=== PATIENT | male | born 1960 | race Two or more races ===

== ENCOUNTER 2024-10-22 17:40 | Inpatient (IN) | payer OTHER, MEDICAID ==
[~2024-10-22] VITALS: Ht 177.8 cm; Wt 100.0 kg
--- NOTE | 2024-10-22 18:15 | ED.PDOC ---
General HPI Comments 64 y.o male with PMHx of HTN, DM, HLD and kidney stones, presents to the ED for a chief complaint of left sided flank pain radiating to both his back and abdomen that started 2 weeks ago. Patient describes pain as sharp, constant, and rating a 8/10 on the pain scale. Patient reports pain is similar to previous episodes in which he was dx with kidney stones and hernia. Patient denies any dysuria, hematuria, fever, chills, bloody stool, nausea, vomiting or diarrhea. Chief Complaint: Flank Pain Time Seen by MD: 18:00 Primary Care Provider: ERIN Reviewed notes: Nurses Notes, Medications, Allergies Allergies: Coded Allergies: NO KNOWN ALLERGIES (Unverified , 10/22/24) Information Source: Patient Mode of Arrival: Ambulatory Severity: Moderate Timing: Weeks (2) Duration: Since onset Onset: Spontaneous Symptoms: None History of: Kidney stone Location: (L)Flank Modifying factors: None associated signs and symptoms: Abdominal Pain, Flank Pain, Back Pain Past Medical History PAST MEDICAL HISTORY: DM, High Lipids, HTN, Kidney Stones Past Medical History (Other): hernia Surgical History: Denies all surgeries Family History Family History: Family hx of DM Social History Smoker: Non-Smoker Alcohol: Denies ETOH Use Drugs: Denies Drug Use Lives In: Home Constitutional: denies: chills, diaphoresis, fatigue, fever, malaise, sweats, weakness, others EENTM: denies: blurred vision, double vision, ear bleeding, ear discharge, ear drainage, ear pain, ear ringing, eye pain, eye redness, hearing loss, mouth pain, mouth swelling, nasal discharge, nose bleeding, nose congestion, nose pain, photophobia, tearing, throat pain, throat swelling, voice changes, others Respiratory: denies: cough, hemoptysis, orthopnea, SOB at rest, shortness of breath, SOB with excertion, stridor, wheezing, others Cardiovascular: denies: chest pain, dizzy spells, diaphoresis, Dyspnea on exertion, edema, irregular heart beat, left arm pain, lightheadedness, palpitations, PND, syncope, others Gastrointestinal: reports: abdominal pain; denies: abdomen distended, blood streaked bowels, constipated, diarrhea, dysphagia, difficulty swallowing, hematemesis, melena, nausea, poor appetite, poor fluid intake, rectal bleeding, rectal pain, vomiting, others Genitourinary: reports: flank pain; denies: burning, dysuria, frequency, hematuria, incontinence, penile discharge, penile sore, pain, testicle pain, testicle swelling, urgency, others Neurological: denies: dizziness, fainting, headache, left sided numbness, left sided weakness, numbness, paresthesia, pre-existing deficit, right sided numbness, right sided weakness, seizure, speech problems, tingling, tremors, weakness, others Musculoskeletal: reports: back pain; denies: gout, joint pain, joint swelling, muscle pain, muscle stiffness, neck pain, others Integumetry: denies: bruises, change in color, change in hair/nails, dryness, laceration, lesions, lumps, rash, wounds, others Allergic/Immunocompromised: denies: Difficulty Healing, Frequent Infections, Hives, Itching, others Hematologic/Lymphatic: denies: anemia, blood clots, easy bleeding, easy bruising, swollen glands, others Endocrine: denies: excessive hunger, excessive sweating, excessive thirst, excessive urination, flushing, intolerance to cold, intolerance to heat, unexplained weight gain, unexplained weight loss, others Psychiatric: denies: anxiety, bipolar disorder, depression, hopeless, panic disorder, schizophrenia, sleepless, suicidal, others All Other Systems: Reviewed and Negative Physical Exam General Appearance: Moderate Distress HEENT: Normal ENT Inspection, Pharynx Normal, TMs Normal Neck: Full Range of Motion, Non-Tender, Normal, Normal Inspection Respiratory: Chest Non-Tender, Lungs Clear, No Accessory Muscle Use, No Respiratory Distress, Normal Breath Sounds Cardiovascular: No Edema, No JVD, No Murmur, No Gallop, Normal Peripheral Pulses, Regular Rate/Rhythm Breast Exam: Deferred Gastrointestinal: No Organomegaly, Non Tender, No Pulsatile Mass, Normal Bowel Sounds, Soft Genitalia: Deferred Pelvic: Deferred Rectal: Deferred Extremities: No calf tenderness, Normal capillary refill, No pedal edema Musculoskeletal : Location: Left Extremity Location: Back Apperance: Tenderness: Moderate Neurologic: Alert, mold stamper II-XII nml as Tested, No Motor Deficits, Normal Affect, Normal Mood, No Sensory Deficits Cerebellar Function: Normal Reflexes: Normal Skin: Dry, Normal Color, Warm Lymphatic: No Adenopathy Was a procedure done? Was a procedure done?: No Differential Diagnosis Kidney stone (Female): N/A Kidney stone (Male): Cholelithiasis, Cholangitis, Pancreatitis, Pyelonephritis, Strain, Urinary obstruction, Urolithiasis, Urinary tract infection X-Ray, Labs, Meds, VS Vital Signs Date Time Temp Pulse Resp B/P (MAP) Pulse Ox O2 Delivery O2 Flow Rate FiO2 10/22/24 18:36 85 18 94 Room Air* 0 21 10/22/24 18:36 98.8 85 18 128/64 (85) 94 98.8 10/22/24 17:59 98.4 97 16 122/66 (84) 97 98.4 Lab Test 10/22/24 18:56 10/22/24 18:00 Range/Units White Blood Count 7.4 4.4-10.8 10^3/uL Red Blood Count 5.36 4.5-5.90 10^6/uL Hemoglobin 14.7 13.5-17.5 g/dL Hematocrit 44.0 41.0-53.0 % Mean Corpuscular Volume 82.1 80.0-100.0 fL Mean Corpuscular Hemoglobin 27.4 L 28.0-32.0 pg Mean Corpuscular Hemoglobin Concent 33.4 32.0-36.0 g/dL Red Cell Distribution Width 13.6 11.8-14.3 % Platelet Count 159 140-450 10^3/uL Mean Platelet Volume 9.8 6.9-10.8 fL Neutrophils (%) (Auto) 56.5 37.0-80.0 % Lymphocytes (%) (Auto) 30.7 10.0-50.0 % Monocytes (%) (Auto) 9.2 0.0-12.0 % Eosinophils (%) (Auto) 3.3 0.0-7.0 % Basophils (%) (Auto) 0.3 0.0-2.0 % Neutrophils # (Auto) 4.2 1.6-8.6 10 ^3/uL Lymphocytes # (Auto) 2.3 0.4-5.4 10 ^3/uL Monocytes # (Auto) 0.7 0-1.3 10 ^3/uL Eosinophils # (Auto) 0.2 0-0.8 10 ^3/uL Basophils # (Auto) 0 0-0.2 10 ^3/uL Nucleated Red Blood Cells 0.0 % Sodium Level 139 136-145 mmol/L Potassium Level 4.6 3.5-5.1 mmol/L Chloride Level 102 98-107 mmol/L Carbon Dioxide Level 28 20-31 mmol/L Anion Gap 9 5-15 Blood Urea Nitrogen 18 9-23 mg/dL Creatinine 1.26 0.700-1.30 mg/dL Glomerular Filtration Rate Calc 64 >90 mL/min BUN/Creatinine Ratio 14.3 10.0-20.0 Serum Glucose 352 H 74-106 mg/dL Calcium Level 10.4 8.7-10.4 mg/dL Urine Color Yellow Yellow Urine Clarity Clear Clear Urine pH 5.5 5.0-9.0 Urine Specific [place] 1.026 1.001-1.035 Urine Protein Trace H Negative Urine Ketones Negative Negative Urine Blood Negative Negative /uL Urine Nitrite Negative Negative Urine Bilirubin Negative Negative Urine Urobilinogen Normal Negative mg/dL Urine Leukocyte Esterase Negative Negative /uL Urine RBC 1 0 - 3 /hpf Urine Microscopic WBC < 1 0-3 /HPF Urine Squamous Epithelial Cells Few <5 /hpf Urine Bacteria None seen None Seen /hpf Urine Mucus Few None Seen Urine Glucose 4+ H Normal mg/dL Current Medications Medications (Trade) Dose Ordered Sig/Divine Route Start Time Stop Time Status Last Admin Ondansetron HCl (Zofran) 4 mg ONCE ONCE IV 10/22/24 18:30 10/22/24 18:31 DC 10/22/24 18:56 Ketorolac Tromethamine (Toradol Injection) 30 mg ONCE ONCE IV 10/22/24 18:30 10/22/24 18:31 DC 10/22/24 18:57 Time of 1ST Reevaluation: 19:00 Reevaluation 1ST: Unchanged Patient Education/Counseling: Diagnosis, Treatment, Prognosis Family Education/Counseling: No Family Present SEPSIS Sepsis Screen Date sepsis recognized/suspect: Oct 22, 2024 Time Sepsis recognized/suspect: 1738 Recent Procedure: No On Antibiotic Therapy: No Respiratory Rate >20: No Heart Rate >90: No Temp<36 C (96.8 F) or >38.3 C: No SBP <90 or MAP <65 mmHG: No New Acute Mental Status Change: No Is the patient on CPAP, BIPAP,: No Physician Orders Ct Ab Pel Wo Con-No Oral Or Iv (10/22/24 18:26) Heplock Iv (10/22/24 18:26) Corn Detasseler (10/22/24 18:26) Blood Pressure (10/22/24 18:26) Pulse Oximetry (10/22/24 18:26) Vital Signs Date Time Temp Pulse Resp B/P (MAP) Pulse Ox O2 Delivery O2 Flow Rate FiO2 10/22/24 18:36 85 18 94 Room Air* 0 21 10/22/24 18:36 98.8 85 18 128/64 (85) 94 98.8 10/22/24 17:59 98.4 97 16 122/66 (84) 97 98.4 Laboratory Tests Test 10/22/24 18:56 White Blood Count 7.4 10^3/uL (4.4-10.8) Medications Medications Dose Ordered Sig/Divine Route Start Time Stop Time Status Last Admin Dose Admin Ketorolac Tromethamine 30 mg ONCE ONCE IV 10/22/24 18:30 10/22/24 18:31 DC 10/22/24 18:57 Ondansetron HCl 4 mg ONCE ONCE IV 10/22/24 18:30 10/22/24 18:31 DC 10/22/24 18:56 Departure 1 Departure Time of Disposition: 20:01 Impression: Primary Impression: Intractable back pain Additional Impressions: Hydronephrosis, left Ureterolithiasis Disposition: ADMITTED INPATIENT Admit to: Med Surg Condition: Fair Critical Care Note Critical Care Time?: No Stability Stability form required: Yes Unstable for transfer: ED Physician Assesment (Clinical assesment) I personally scribed for AMIE MUHAMMAD MD ([email or web address]) on 10/22/24 at 18:15. Electronically submitted by Sarah Iyer ([facility]). AMIE MUHAMMAD MD Oct 22, 2024 18:15
[2024-10-22 18:36] VITALS: PULSE 85; RESP 18; O2SAT 94
[2024-10-22] MEDS: ONDANSETRON HCL 4 MG/2 ML VIAL IV ONE (18:56)
[2024-10-22] MEDS: KETOROLAC TROMETH 30 MG/ML 1ML VIAL IV ONE (18:57)
[2024-10-22 19:19] LABS: Hematocrit 44.0 % (41.0-53.0); Hemoglobin 14.7 g/dL (13.5-17.5); Mean Corpuscular Hemoglobin 27.4 pg (28.0-32.0); Mean Corpuscular Volume 82.1 fL (80.0-100.0); Nucleated Red Blood Cells % 0.0 %
[2024-10-22 19:29] LABS: Anion Gap 9 (5-15); Carbon Dioxide 28 mmol/L (20-31); Chloride 102 mmol/L (98-107); Potassium 4.6 mmol/L (3.5-5.1); Sodium 139 mmol/L (136-145)
[2024-10-22 19:30] LABS: Calcium 10.4 mg/dL (8.7-10.4)
[2024-10-22 19:35] LABS: BUN/Creatinine Ratio 14.3 (10.0-20.0); Blood Urea Nitrogen 18 mg/dL (9-23)
[2024-10-22 19:38] LABS: Glucose 352 mg/dL (74-106)
[2024-10-22 19:49] LABS: Urine Protein, UAD TRACE (Negative)
--- NOTE | 2024-10-22 19:53 | DVH ---
Exam: CT CT AB PEL WO CON-NO ORAL OR IV History: FLANK PAIN Comparison Study: None TECHNIQUE: Multidetector CT of the abdomen was performed from lung bases to pubic symphysis. Imaging was performed without IV contrast. Axial, coronal and sagittal multiplanar reformats were obtained fr om the axial data set by the technologist. Radiation Dose Information: Dose-length product is 975 mGy*cm FINDINGS: Limited sections of the lung bases demonstrate no focal pulmonary mass. Left lingular subsegmental at electasis. The liver, spleen, and both adrenal glands demonstrate no acute findings. Hepatomegaly to 17 cm. Minimal inflammation about the pancreatic head where acute pancreatitis is not entirely excluded. The gallbladder is contracted The stomach is unremarkable. The small bowel loops are not dilated. The appendix is normal. No colonic obstruction. Colonic diverticulosis without acute diverticulitis. Nonobstructive stone within the left kidney. No hydronephrosis. The right collecting system is unrema rkable. Urinary bladder wall thickening which may reflect cystitis vs partial nondistention; consider correla tion with urinarlysis. No significant lymphadenopathy. No free air or free fluid. The aorta and IVC demonstrate no acute findings. Minimal atherosclerosis of the abdominal vasculature . Visualized osseous structures demonstrate no acute abnormality. IMPRESSION: 1. Nonobstructive stone within the left kidney without hydronephrosis or evidence of obstructive urop athy. Recent passage of stone is not entirely excluded. 2. Urinary bladder wall thickening which may reflect cystitis vs partial nondistention; consider jac elation with urinarlysis. 3. Minimal inflammation about the pancreatic head where acute pancreatitis is not entirely excluded.
[2024-10-22] MEDS ORDERED: MORPHINE SULFATE INJ 2 MG/ml SYRG IV PRN (21:30)
[2024-10-22] MEDS ORDERED: DEXTROSE (50%) 50ML SYRG IV PRN (21:30)
[2024-10-22] MEDS ORDERED: NITROGLYCERIN 0.4 MG SL TAB SL PRN (21:30)
--- NOTE | 2024-10-22 21:42 | DVHHP2 ---
History of Present Illness History of Present Illness This is a 64-year-old male with past medical history of DM2, HTN, HLD, kidney stone came with the complain of left flank pain for 2 weeks which is progressiv chiquis worsening day by day which is more severe for last 4 days, flank pain is dull and occasionally pinching, continuous, 8/10 intensity, radiates from groin to tip of the penis is during micturition, no aggravating factor, tried ibuprofen which helps a little. Patient also had similar symptoms before and passage of stone in urine 1 year back. Patient does not having particular di etary habit or any known factor that causes the stone. Denies any fever, hematuria, chest pain, headache, SOB, nausea, vomiting, any focal weakness. PAST MEDICAL HISTORY: DM2, HTN, HLD, kidney stone Surgical History: Denies all surgeries Family History: Family hx of DM Smoker: Non-Smoker Alcohol: Denies ETOH Use Drugs: Denies Drug Use Lives In: Home Allergy: No known allergies PCP: Dr. Wilkinson Review of Systems Constitutional: Yes: Malaise; No: Fever, Chills, Sweats, Weakness, Other Eyes: No: Pain, Vision change, Conjunctivae inflammation, Eyelid inflammation, Other, Redness ENT: No: Ear pain, Ear discharge, Nose pain, Nose discharge, Nose congestion, Mouth pain, Mouth swelling, Throat pain, Throat swelling, Other Respiratory: No: Cough, Dry, Shortness of breath, SOB with excertion, Wheezing, Hemoptysis, Pleuritic Pain, Sputum, Wheezing, Other Cardiovascular: No: Chest Pain, Palpitations, Orthopnea, Paroxysmal Noc. Dyspnea, Edema, Lt Headedness, Other Gastrointestinal: Abdominal Pain, Other (Left flank pain); No: Nausea, Vomiting, Diarrhea, Constipation, Melena, Hematochezia Genitourinary: No Dysuria, No Frequency, No Incontinence, No Hematuria, No Retention; Other (Pain during micturition on tip of penis) Musculoskeletal: No: other, neck pain, shoulder pain, arm pain, back pain, hand pain, leg pain, foot pain Skin: No: Rash, Lesions, Jaundice, Bruising, Other Neurological: No: Weakness, Numbness, Incoordination, Change in speech, Confusion, Seizures, Other Allergies: Coded Allergies: NO KNOWN ALLERGIES (Unverified , 10/22/24) Medications Current Medications Medications Dose Ordered Sig/Divine Route Start Time Stop Time Status Last Admin Dose Admin Nitroglycerin 0.4 mg Q5MINP PRN SL 10/22/24 21:30 UNV Morphine Sulfate 2 mg Q30M PRN IV 10/22/24 21:30 UNV Aspirin 81 mg DAILY PO 10/23/24 10:00 UNV Atorvastatin Calcium 10 mg HS PO 10/22/24 22:00 UNV Diagnostic Test (Pha) 1 strip ACHS 10/22/24 22:00 UNV Insulin Human Regular HS SC 10/22/24 22:00 UNV Insulin Human Regular AC SC 10/23/24 07:00 UNV Dextrose 50 ml UD PRN IV 10/22/24 21:30 UNV Insulin Glargine 15 units QAM SC 10/23/24 07:00 UNV Benazepril HCl 20 mg DAILY PO 10/23/24 10:00 UNV Pantoprazole Sodium 40 mg DAILY@0600 PO 10/23/24 06:00 UNV Exam Vital Signs Vital Signs Date Time Temp Pulse Resp B/P (MAP) Pulse Ox O2 Delivery O2 Flow Rate FiO2 10/22/24 18:36 85 18 94 Room Air* 0 21 10/22/24 18:36 98.8 128/64 (85) 98.8 General Appearance: Alert, Oriented X3, Cooperative, mild distress HEENT: Atraumatic, PERRLA, EOMI Respiratory: Clear to auscultation, Normal air movement Cardiovascular: Regular rate, Normal S1, Normal S2, No murmurs Abdominal: Normal bowel sounds, Soft, No hepatospenomegaly, Other (Left costovertebral angle tenderness on deep palpation) Extremities: No clubbing, No cyanosis, No edema, Normal pulses Skin: No breakdown, No significant lesion Neuro: Normal gait, Normal speech, Strength at 5/5 X4 ext Labs/Xrays Labs Test 10/22/24 18:56 10/22/24 18:00 Range/Units White Blood Count 7.4 4.4-10.8 10^3/uL Red Blood Count 5.36 4.5-5.90 10^6/uL Hemoglobin 14.7 13.5-17.5 g/dL Hematocrit 44.0 41.0-53.0 % Mean Corpuscular Volume 82.1 80.0-100.0 fL Mean Corpuscular Hemoglobin 27.4 L 28.0-32.0 pg Mean Corpuscular Hemoglobin Concent 33.4 32.0-36.0 g/dL Red Cell Distribution Width 13.6 11.8-14.3 % Platelet Count 159 140-450 10^3/uL Mean Platelet Volume 9.8 6.9-10.8 fL Neutrophils (%) (Auto) 56.5 37.0-80.0 % Lymphocytes (%) (Auto) 30.7 10.0-50.0 % Monocytes (%) (Auto) 9.2 0.0-12.0 % Eosinophils (%) (Auto) 3.3 0.0-7.0 % Basophils (%) (Auto) 0.3 0.0-2.0 % Neutrophils # (Auto) 4.2 1.6-8.6 10 ^3/uL Lymphocytes # (Auto) 2.3 0.4-5.4 10 ^3/uL Monocytes # (Auto) 0.7 0-1.3 10 ^3/uL Eosinophils # (Auto) 0.2 0-0.8 10 ^3/uL Basophils # (Auto) 0 0-0.2 10 ^3/uL Nucleated Red Blood Cells 0.0 % Sodium Level 139 136-145 mmol/L Potassium Level 4.6 3.5-5.1 mmol/L Chloride Level 102 98-107 mmol/L Carbon Dioxide Level 28 20-31 mmol/L Anion Gap 9 5-15 Blood Urea Nitrogen 18 9-23 mg/dL Creatinine 1.26 0.700-1.30 mg/dL Glomerular Filtration Rate Calc 64 >90 mL/min BUN/Creatinine Ratio 14.3 10.0-20.0 Serum Glucose 352 H 74-106 mg/dL Calcium Level 10.4 8.7-10.4 mg/dL Urine Color Yellow Yellow Urine Clarity Clear Clear Urine pH 5.5 5.0-9.0 Urine Specific [place] 1.026 1.001-1.035 Urine Protein Trace H Negative Urine Ketones Negative Negative Urine Blood Negative Negative /uL Urine Nitrite Negative Negative Urine Bilirubin Negative Negative Urine Urobilinogen Normal Negative mg/dL Urine Leukocyte Esterase Negative Negative /uL Urine RBC 1 0 - 3 /hpf Urine Microscopic WBC < 1 0-3 /HPF Urine Squamous Epithelial Cells Few <5 /hpf Urine Bacteria None seen None Seen /hpf Urine Mucus Few None Seen Urine Glucose 4+ H Normal mg/dL SEPSIS Sepsis Screen Date sepsis recognized/suspect: Oct 22, 2024 Time Sepsis recognized/suspect: 1738 Recent Procedure: No On Antibiotic Therapy: No Respiratory Rate >20: No Heart Rate >90: No Temp<36 C (96.8 F) or >38.3 C: No SBP <90 or MAP <65 mmHG: No New Acute Mental Status Change: No Is the patient on CPAP, BIPAP,: No Physician Orders Ct Ab Pel Wo Con-No Oral Or Iv (10/22/24 18:26) Heplock Iv (10/22/24 18:26) Manager Medical (10/22/24 18:26) Blood Pressure (10/22/24 18:26) Pulse Oximetry (10/22/24 18:26) Admit (10/22/24 21:23) Nitroglycerin Sublingual (Ntrostat Subli (10/22/24 21:30) Morphine Sulfate Injection (10/22/24 21:30) Consistent Carb(Ccho)Diabetes (10/23/24 Breakfast) Aspirin Tablet (10/23/24 10:00) Atorvastatin (Lipitor) (10/22/24 22:00) Glucose Blood (Accu-Chek Comfort Curve T (10/22/24 22:00) Insulin R (Human) (Insulin R) (10/22/24 22:00) Insulin R (Human) (Insulin R) (10/23/24 07:00) Dextrose 50% Syringe (10/22/24 21:30) Insulin Lantus (Glargine) (Lantus) (10/23/24 07:00) Benazepril Hcl Tablet (Lotensin Tablet) (10/23/24 10:00) Pantoprazole Tablet (Protonix Tablet) (10/23/24 06:00) Sequential Compression Device (10/22/24 21:31) Vital Signs Date Time Temp Pulse Resp B/P (MAP) Pulse Ox O2 Delivery O2 Flow Rate FiO2 10/22/24 18:36 85 18 94 Room Air* 0 21 10/22/24 18:36 98.8 85 18 128/64 (85) 94 98.8 10/22/24 17:59 98.4 97 16 122/66 (84) 97 98.4 Laboratory Tests Test 10/22/24 18:56 White Blood Count 7.4 10^3/uL (4.4-10.8) Medications Medications Dose Ordered Sig/Divine Route Start Time Stop Time Status Last Admin Dose Admin Ketorolac Tromethamine 30 mg ONCE ONCE IV 10/22/24 18:30 10/22/24 18:31 DC 10/22/24 18:57 30 MG Ondansetron HCl 4 mg ONCE ONCE IV 10/22/24 18:30 10/22/24 18:31 DC 10/22/24 18:56 4 MG Assessment/Plan Assessment/Plan # Intractable left flank pain due to left renal calculus -Patient came with intractable left flank pain. -H/O Passage stone in urine 1 year back -On examination left costovertebral angle tenderness -UA-no hematuria or WBC -CT abdominal and pelvis without contrast: Nonobstructive stone within the left kidney without hydronephrosis or evidence of obstructive uropathy. Urinary bladder wall thickening which may reflect cystitis vs partial nondistention; consider correlation with urinarlysis. Minimal inflammation about the pancreatic head where acute pancreatitis is not entirely excluded. -NSS 100 cc/hours -Morphine 1 mg q.6 p.r.n. for pain -Tamsulosin 0.4 mg p.o. daily -Ceftriaxone 1 g IV daily -Urology consult # Abdominal pain likely pancreatitis -CT abd-Minimal inflammation about the pancreatic head where acute pancreatitis is not entirely excluded. -Lipase 216 -NSS 1 L bolus stat. -continue NSS 125 cc/hour # Hepatomegaly -CT abdomen-Hepatomegaly to 17 cm. -outpatient follow up with cross country coach # Diverticulosis -CT abdomen-Colonic diverticulosis without acute diverticulitis. -Encourage high fiber food intake, outpatient follow-up. # Type 2 diabetes mellitus with hyperglycemia, HBA1C -9.1 -Hold home medication-metformin 1000 mg, glipizide 10 mg -Lantus 25 unit SC daily -Insulin sliding scale # YESICA due to vasomotor nephropathy -Serum creatinine 1.26, unknown baseline eGFR 64 -NSS IV 100 cc/hours # Essential hypertension -Continue home medication, benazepril 20 mg p.o. daily -Monitor blood pressures # Hyperlipidemia -Atorvastatin 10 mg p.o. daily-home medication -Lipid profile follow # Vitamin-D deficiency -Vitamin-D level 25.3 -Ordered by oral vitamin D3 # Obesity, BMI 31.6 -Lifestyle modification Son(KEENA Zapata) work as Palestinian interpreted in bedside. Diet: Diabetic diet GI prophylaxis: Pantoprazole 40 mg p.o. daily DVT prophylaxis: Patient ambulating Goals of care discussions, more than 27 minute is spent with patient. Full code status. Case discussed with Dr. Wilson Plan discussed with: Patient, Other (Nurse, son ) My Orders Orders - TOMER OLIVEROS Procedure Category Date Status Time Admit ADMIT 10/22/24 Transmitted 21:23 Nitroglycerin PHA 10/22/24 Logged Sublingual (Ntrostat 21:30 Morphine Sulfate PHA 10/22/24 Logged Injection 21:30 Consistent DIET 10/23/24 Transmitted Carb(Ccho)Diabetes Breakfast Aspirin Tablet PHA 10/23/24 Logged 10:00 Atorvastatin (Lipitor) PHA 10/22/24 Logged 22:00 Glucose Blood PHA 10/22/24 Logged (Accu-Chek Comfort 22:00 Insulin R (Human) PHA 10/22/24 Logged (Insulin R) 22:00 Insulin R (Human) PHA 10/23/24 Logged (Insulin R) 07:00 Dextrose 50% Syringe PHA 10/22/24 Logged 21:30 Insulin Lantus PHA 10/23/24 Logged (Glargine) (Lantus) 07:00 Benazepril Hcl Tablet PHA 10/23/24 Logged (Lotensin Tablet) 10:00 Pantoprazole Tablet PHA 10/23/24 Logged (Protonix Tablet) 06:00 Sequential EDY 10/22/24 In Process Compression Device 21:31 Date of Service: Oct 22, 2024 Billing Provider: BESSY WILSON MD Common Visit Codes: [id number] INP/OBS CARE (HIGH) Secondary Visit Codes: [id number] CARE PLAN 30 MINUTES TOMER OLIVEROS Oct 22, 2024 21:42
[2024-10-22] MEDS: ACCU-CHEK COMFORT CURVE STRIP VI SCH (22:00)
[2024-10-22] MEDS: ATORVASTATIN 20 MG TAB PO SCH (22:00)
[2024-10-22] MEDS: TAMSULOSIN HYDROCHLORIDE 0.4 MG CAP PO ONE (22:30)
[2024-10-22] MEDS: SODIUM CHLORIDE 0.9% 1,000 ML IV SCH (22:30)
[2024-10-22] MEDS: InsuLIN REG 1unit/0.01ml Soln (100units/ml) SC SCH (23:20)
--- NOTE | 2024-10-22 23:35 | DVH ---
CHEST RADIOGRAPH Indication: r/o cardiopulmonary dx Technique: Single frontal view of the chest was obtained Comparison: None FINDINGS: Lines and Tubes: None Lungs: No focal consolidation. Left base subsegmental atelectasis. Pleura: No effusion. No pneumothorax. Cardiomediastinal contours: Unremarkable Bones: No acute osseous abnormality. IMPRESSION: 1. No acute cardiopulmonary disease.
[2024-10-23] VITALS (7 sets, daily range): BP systolic 116–149; BP diastolic 67–74; PULSE 67–97; RESP 16–18; TEMP 97.3–98.2; O2SAT 95–99
[2024-10-23 05:01] LABS: Alanine Aminotransferase 32 U/L (7-40); Albumin 3.9 g/dL (3.2-4.8); Alkaline Phosphatase 75 U/L (46-116); Anion Gap 10 (5-15); BUN/Creatinine Ratio 19.6 (10.0-20.0); Blood Urea Nitrogen 22 mg/dL (9-23); Calcium 9.7 mg/dL (8.7-10.4); Carbon Dioxide 24 mmol/L (20-31); Chloride 106 mmol/L (98-107); Potassium 4.7 mmol/L (3.5-5.1); Sodium 140 mmol/L (136-145); Total Protein 6.6 g/dL (5.7-8.2)
[2024-10-23 05:02] LABS: Bilirubin, Total 0.4 mg/dL (0.2-1.0); Cholesterol 173 mg/dL (< 200); HDL Cholesterol 45 mg/dL (40-59)
[2024-10-23 05:06] LABS: Glucose 176 mg/dL (74-106); Triglycerides 224 mg/dL (< 150)
[2024-10-23 05:36] LABS: Lipase 216 U/L (12-53)
[2024-10-23] MEDS: PANTOPRAZOLE 40 MG TAB PO SCH (06:31)
[2024-10-23] MEDS: SODIUM CHLORIDE 0.9% 1,000 ML IV ONE ×2 (06:32→09:15)
[2024-10-23] MEDS ORDERED: INSULIN LANTUS (GLARGINE) 1 /0.01ml (100units/ml) SC SCH (07:00)
[2024-10-23] MEDS: SODIUM CHLORIDE 0.9% 1,000 ML IV SCH ×2 (07:46→16:35)
[2024-10-23] MEDS: InsuLIN REG 1unit/0.01ml Soln (100units/ml) SC SCH (07:57)
[2024-10-23] MEDS: INSULIN LANTUS (GLARGINE) 1 /0.01ml (100units/ml) SC SCH (08:05)
[2024-10-23] MEDS ORDERED: hydrALAZINE HCL 20 MG/ML VL IV PRN (08:45)
--- NOTE | 2024-10-23 08:55 | DVHINCON2 ---
Date of service: Oct 23, 2024 Referring Physician ER/Hospitalist Reason for Consultation Left flank pain 8/10 4-5 mm left renal stone History of Present Illness 64 y.o male with PMHx of HTN, DM, HLD and kidney stones, presents to the ED for a chief complaint of left sided flank pain radiating to both his back and abdomen that started 2 weeks ago. Patient describes pain as sharp, constant, and rating a 8/10 on the pain scale. Patient reports pain is similar to previous episodes in which he was dx with kidney stones and hernia. Patient denies any dy suria, hematuria, fever, chills, bloody stool, nausea, vomiting or diarrhea. Chief Complaint: Flank Pain Primary Care Provider: ERIN Reviewed notes: Nurses Notes, Medications, Allergies Allergies: Coded Allergies: NO KNOWN ALLERGIES (Unverified , 10/22/24) Information Source: Patient Mode of Arrival: Ambulatory Severity: Moderate Timing: Weeks (2) Duration: Since onset Onset: Spontaneous Symptoms: None History of: Kidney stone Location: (L)Flank Modifying factors: None associated signs and symptoms: Abdominal Pain, Flank Pain, Back Pain Past Medical History DM, High Lipids, HTN, Kidney Stones Past Medical History (Other): hernia Family History: Patient reports no known family medical history. Allergies: Coded Allergies: NO KNOWN ALLERGIES (Unverified , 10/22/24) Current Medications Current Medications Medications (Trade) Dose Ordered Sig/Divine Route PRN Reason Start Time Stop Time Status Last Admin Nitroglycerin (Ntrostat Sublingual) 0.4 mg Q5MINP PRN SL FOR CHEST PAIN 10/22/24 21:30 Morphine Sulfate 2 mg Q30M PRN IV FOR CHEST PAIN 10/22/24 21:30 Aspirin 81 mg DAILY PO 10/23/24 10:00 10/23/24 08:32 DC Atorvastatin Calcium (Lipitor) 10 mg HS PO 10/22/24 22:00 10/22/24 22:00 Diagnostic Test (Pha) (Accu-Chek Comfort Curve T) 1 strip ACHS 10/22/24 22:00 10/23/24 07:46 Insulin Human Regular (InsuLIN R) HS SC 10/22/24 22:00 10/22/24 23:20 Insulin Human Regular (InsuLIN R) AC SC 10/23/24 07:00 10/23/24 07:57 Dextrose 50 ml UD PRN IV Blood Sugar LESS THAN 60 10/22/24 21:30 Insulin Glargine (Lantus) 15 units QAM SC 10/23/24 07:00 10/22/24 22:28 DC Benazepril HCl (Lotensin Tablet) 20 mg DAILY PO 10/23/24 10:00 Pantoprazole Sodium (Protonix Tablet) 40 mg DAILY@0600 PO 10/23/24 06:00 10/23/24 06:31 Sodium Chloride 1,000 ml @ 100 mls/hr Q10H IV 10/22/24 22:30 10/23/24 06:06 DC Tamsulosin HCl (Flomax) 0.4 mg QPM PO 10/23/24 18:00 Insulin Glargine (Lantus) 25 units QAM SC 10/23/24 07:00 10/23/24 08:05 Morphine Sulfate 1 mg Q6HP PRN IV MODERATE PAIN (4-6 PAIN SCALE) 10/22/24 22:30 Ceftriaxone Sodium 50 ml @ 100 mls/hr DAILY@09 IV 10/23/24 09:00 Cholecalciferol (Vitamin D3 Tablet) 1,000 unit DAILY PO 10/23/24 10:00 Sodium Chloride 1,000 ml @ 125 mls/hr Q8H IV 10/23/24 06:01 10/23/24 07:46 Hydralazine HCl (Apresoline Injection) 10 mg Q6HP PRN IV SBP>150 10/23/24 08:45 UNV Review of Systems Constitutional: denies: chills, diaphoresis, fatigue, fever, malaise, sweats, weakness, others EENTM: denies: blurred vision, double vision, ear bleeding, ear discharge, ear drainage, ear pain, ear ringing, eye pain, eye redness, hearing loss, mouth pain, mouth swelling, nasal discharge, nose bleeding, nose congestion, nose pain, photophobia, tearing, throat pain, throat swelling, voice changes, others Respiratory: denies: cough, hemoptysis, orthopnea, SOB at rest, shortness of breath, SOB with excertion, stridor, wheezing, others Cardiovascular: denies: chest pain, dizzy spells, diaphoresis, Dyspnea on exertion, edema, irregular heart beat, left arm pain, lightheadedness, palpitations, PND, syncope, others Gastrointestinal: reports: abdominal pain; denies: abdomen distended, blood streaked bowels, constipated, diarrhea, dysphagia, difficulty swallowing, hematemesis, melena, nausea, poor appetite, poor fluid intake, rectal bleeding, rectal pain, vomiting, others Genitourinary: reports: flank pain; denies: burning, dysuria, frequency, hematuria, incontinence, penile discharge, penile sore, pain, testicle pain, testicle swelling, urgency, others Neurological: denies: dizziness, fainting, headache, left sided numbness, left sided weakness, numbness, paresthesia, pre-existing deficit, right sided numbness, right sided weakness, seizure, speech problems, tingling, tremors, weakness, others Musculoskeletal: reports: back pain; denies: gout, joint pain, joint swelling, muscle pain, muscle stiffness, neck pain, others Integumetry: denies: bruises, change in color, change in hair/nails, dryness, laceration, lesions, lumps, rash, wounds, others Allergic/Immunocompromised: denies: Difficulty Healing, Frequent Infections, Hives, Itching, others Hematologic/Lymphatic: denies: anemia, blood clots, easy bleeding, easy bru ising, swollen glands, others Endocrine: denies: excessive hunger, excessive sweating, excessive thirst, e xcessive urination, flushing, intolerance to cold, intolerance to heat, unexplained weight gain, unexplained weight loss, others Psychiatric: denies: anxiety, bipolar disorder, depression, hopeless, panic disorder, schizophrenia, sleepless, suicidal, others All Other Systems: Reviewed and Negative Vital Signs Vital Signs Date Time Temp Pulse Resp B/P (MAP) Pulse Ox O2 Delivery O2 Flow Rate FiO2 10/23/24 01:40 98.2 67 18 133/67 (89) 97 98.2 10/23/24 00:40 Room Air* 0 21 Physical Exam General Appearance: Moderate Distress HEENT: Normal ENT Inspection, Pharynx Normal, TMs Normal Neck: Full Range of Motion, Non-Tender, Normal, Normal Inspection Respiratory: Chest Non-Tender, Lungs Clear, No Accessory Muscle Use, No Respiratory Distress, Normal Breath Sounds Cardiovascular: No Edema, No JVD, No Murmur, No Gallop, Normal Peripheral Pulses, Regular Rate/Rhythm Breast Exam: Deferred Gastrointestinal: No Organomegaly, Non Tender, No Pulsatile Mass, Normal Bowel Sounds, Soft Genitalia: WNL Extremities: No calf tenderness, Normal capillary refill, No pedal edema Musculoskeletal : Location: Left Extremity Location: Back Apperance: Tenderness: Moderate Neurologic: Alert, community outreach worker II-XII nml as Tested, No Motor Deficits, Normal Affect, Normal Mood, No Sensory Deficits Cerebellar Function: Normal Reflexes: Normal Skin: Dry, Normal Color, Warm Lymphatic: No Adenopathy Labs/Diagnostic Data Labs Test 10/23/24 07:51 10/23/24 04:11 10/22/24 18:56 10/22/24 18:00 Range/Units POC Glucose 168 H 70-106 mg/dl Sodium Level 140 136-145 mmol/L Potassium Level 4.7 3.5-5.1 mmol/L Chloride Level 106 98-107 mmol/L Carbon Dioxide Level 24 20-31 mmol/L Anion Gap 10 5-15 Blood Urea Nitrogen 22 9-23 mg/dL Creatinine 1.12 0.700-1.30 mg/dL Glomerular Filtration Rate Calc 74 >90 mL/min BUN/Creatinine Ratio 19.6 10.0-20.0 Serum Glucose 176 #H 74-106 mg/dL Hemoglobin A1c 9.1 H <5.7 % A1C Calcium Level 9.7 8.7-10.4 mg/dL Total Bilirubin 0.4 0.2-1.0 mg/dL Aspartate Amino Transferase (AST) 29 13-40 U/L Alanine Aminotransferase (ALT) 32 7-40 U/L Alkaline Phosphatase 75 46-116 U/L Total Protein 6.6 5.7-8.2 g/dL Albumin 3.9 3.2-4.8 g/dL Triglycerides Level 224 H < 150 mg/dL Cholesterol Level 173 < 200 mg/dL LDL Cholesterol 110 H < 100 mg/dL HDL Cholesterol 45 40-59 mg/dL Lipase 216 H 12-53 U/L Vitamin D 25-Hydroxy 25.3 L 30.0-100 ng/mL Thyroid Stimulating Hormone (TSH) 3.26 0.55-4.78 uIU/mL White Blood Count 7.4 4.4-10.8 10^3/uL Red Blood Count 5.36 4.5-5.90 10^6/uL Hemoglobin 14.7 13.5-17.5 g/dL Hematocrit 44.0 41.0-53.0 % Mean Corpuscular Volume 82.1 80.0-100.0 fL Mean Corpuscular Hemoglobin 27.4 L 28.0-32.0 pg Mean Corpuscular Hemoglobin Concent 33.4 32.0-36.0 g/dL Red Cell Distribution Width 13.6 11.8-14.3 % Platelet Count 159 140-450 10^3/uL Mean Platelet Volume 9.8 6.9-10.8 fL Neutrophils (%) (Auto) 56.5 37.0-80.0 % Lymphocytes (%) (Auto) 30.7 10.0-50.0 % Monocytes (%) (Auto) 9.2 0.0-12.0 % Eosinophils (%) (Auto) 3.3 0.0-7.0 % Basophils (%) (Auto) 0.3 0.0-2.0 % Neutrophils # (Auto) 4.2 1.6-8.6 10 ^3/uL Lymphocytes # (Auto) 2.3 0.4-5.4 10 ^3/uL Monocytes # (Auto) 0.7 0-1.3 10 ^3/uL Eosinophils # (Auto) 0.2 0-0.8 10 ^3/uL Basophils # (Auto) 0 0-0.2 10 ^3/uL Nucleated Red Blood Cells 0.0 % Urine Color Yellow Yellow Urine Clarity Clear Clear Urine pH 5.5 5.0-9.0 Urine Specific Trosper 1.026 1.001-1.035 Urine Protein Trace H Negative Urine Ketones Negative Negative Urine Blood Negative Negative /uL Urine Nitrite Negative Negative Urine Bilirubin Negative Negative Urine Urobilinogen Normal Negative mg/dL Urine Leukocyte Esterase Negative Negative /uL Urine RBC 1 0 - 3 /hpf Urine Microscopic WBC < 1 0-3 /HPF Urine Squamous Epithelial Cells Few <5 /hpf Urine Bacteria None seen None Seen /hpf Urine Mucus Few None Seen Urine Glucose 4+ H Normal mg/dL PATIENT: CUBA CHILDRESS VACCT: [id number] UNIT: [id number] : 1960 LOC: ER ROOM / BED: / AGE / SEX: 64 / M ADM STATUS: REG ER SERVICE [id number] ORDERING PHYSICIAN: AMIE MUHAMMAD MD PROCEDURE(s): ABPL - CT AB PEL WO CON-NO ORAL OR IV REASON: FLANK PAIN ORDER NUMBER(s): [id number], ACCESSION NUMBER(s): [id number] Exam: CT CT AB PEL WO CON-NO ORAL OR IV History: FLANK PAIN Comparison Study: None TECHNIQUE: Multidetector CT of the abdomen was performed from lung bases to pubic symphysis. Imaging was performed without IV contrast. Axial, coronal and sagittal multiplanar reformats were obtained from the axial data set by the technologist. Radiation Dose Information: Dose-length product is 975 mGy*cm FINDINGS: Limited sections of the lung bases demonstrate no focal pulmonary mass. Left lingular subsegmental atelectasis. The liver, spleen, and both adrenal glands demonstrate no acute findings. Hepatomegaly to 17 cm. Minimal inflammation about the pancreatic head where acute pancreatitis is not entirely excluded. The gallbladder is contracted The stomach is unremarkable. The small bowel loops are not dilated. The appendix is normal. No colonic obstruction. Colonic diverticulosis without acute diverticulitis. Nonobstructive stone within the left kidney. No hydronephrosis. The right collecting system is unremarkable. Urinary bladder wall thickening which may reflect cystitis vs partial nondistention; consider correlation with urinarlysis. No significant lymphadenopathy. No free air or free fluid. The aorta and IVC demonstrate no acute findings. Minimal atherosclerosis of the abdominal vasculature. Visualized osseous structures demonstrate no acute abnormality. IMPRESSION: 1. Nonobstructive stone within the left kidney without hydronephrosis or e vidence of obstructive uropathy. Recent passage of stone is not entirely excluded. 2. Urinary bladder wall thickening which may reflect cystitis vs partial nondistention; consider correlation with urinarlysis. 3. Minimal inflammation about the pancreatic head where acute pancreatitis is not entirely excluded. ATED BY: HÉCTOR MEDINA MD DICTATED DATE/TIME: 10/22/241950 SIGNED BY: HÉCTOR MEDINA MD SIGNED DATE/TIME: 10/22/241950 CC: Assessment Left nephrolithiasis 5 mm Left renal colic Plan/Recommendation Left extracorporeal shockwave lithotripsy Plan discussed with: Patient, Other ABEBE BLANCHARD MD Oct 23, 2024 08:55
[2024-10-23] MEDS: cefTRIAXone 1GM/50ML D5W 50 ML IV SCH (08:59)
[2024-10-23] MEDS: BENAZEPRIL HCL 10 MG TAB PO SCH (09:23)
[2024-10-23] MEDS: CHOLECALCIFEROL (VITD3) 1,000UNIT=25mCg TAB PO SCH (09:24)
[2024-10-23] MEDS ORDERED: ROCURONIUM 10MG/ML 10ML VIAL IV ONE (11:41)
[2024-10-23] MEDS ORDERED: LIDOCAINE 1% INJ PF 5ML AMP ONE (11:41)
[2024-10-23] MEDS ORDERED: fentaNYL CITRATE 100 MCG/2 ML VL ONE ×2 (11:41→12:28)
[2024-10-23] MEDS ORDERED: SODIUM CHLORIDE LOCK 10 ML ONE (11:41)
[2024-10-23] MEDS ORDERED: KETAMINE 50mg/ML 1ml syringe ONE ×2 (11:41→12:28)
[2024-10-23] MEDS ORDERED: ONDANSETRON HCL 4 MG/2 ML VIAL ONE ×2 (11:41→12:29)
[2024-10-23] MEDS ORDERED: PROPOFOL 10 MG/ML 20 ML IV ONE ×2 (11:41→12:29)
[2024-10-23] MEDS ORDERED: MIDAZOLAM HCL 2MG/2ML 2ml VIAL (1mg/ml) ONE ×2 (11:41→12:29)
[2024-10-23] MEDS ORDERED: HYDROmorphone HCL 2 MG/ML VL/or syr ONE (12:28)
[2024-10-23] MEDS ORDERED: KETOROLAC TROMETH 30 MG/ML 1ML VIAL ONE (12:29)
[2024-10-23] MEDS ORDERED: LIDOCAINE 2% (LOCAL ANESTH.) PF 5ml SDV ONE (12:29)
[2024-10-23] MEDS ORDERED: GLYCOPYRROLATE 0.2 MG/ML 1ML VIAL ONE (12:29)
[2024-10-23] MEDS ORDERED: MORPHINE SULFATE 4 MG/ML SYR/VIAL IV PRN (12:30)
[2024-10-23] MEDS ORDERED: HYDROmorphone HCL 2 MG/ML VL/or syr IV PRN ×3 (12:30→13:30)
[2024-10-23] MEDS ORDERED: MORPHINE SULFATE INJ 2 MG/ml SYRG IV PRN (12:30)
[2024-10-23] MEDS: IOHEXOL 300 MG/ML 100ML BOTTLE IJ ONE (12:45)
--- NOTE | 2024-10-23 13:14 | DVHNC2 ---
Procedure - OPERATIVE REPORT Pre-op. Diagnosis: Renal Stone Post-op. Diagnosis: Same as pre-op diagnosis Operation: Extracorporeal Shockwave Lithotripsy Anesthesia: General Indications: Patient was found to have symptomatic Urolithiasis. Patient is here to undergo ESWL therapy. Informed Consent: The procedure was explained to the patient. It's risks include but not limited to infection, bleeding, and damage to the kidney. Patient fully understood and signed the consent. Other options such as watchful waiting, Ureteroscopy, Percutaneous surgery and open surgery were also discussed. Details of Procedure: Under satisfactory anesthesia, the patient was positioned on the lithotripsy table. Using fluoroscopy the stone could not be localized. IV contrast was given two outlined the renal calyceal system. The lower pole calyx demonstrated a small filling defect consistent with a 4 mm stone reported on the CAT scan. The stone was then placed onto the F2 focus. Starting at low energy levels, shockwave treatment was commenced. The energy level was gradually increased and stone was fragmented. Once the treatment was completed, patient was then taken off the lithotripsy table and sent to recovery room in stable condition. Specimens: None Complications: None Findings: Stone Laterality: left Stone Location: lower pole, 4 mm Shocks Delivered: 2000 Max Power settin Fragmentation Quality: Well ABEBE BLANCHARD MD Oct 23, 2024 13:14
--- NOTE | 2024-10-23 16:52 | DVHPNRES ---
Progress Note Date Seen: Oct 23, 2024 Resident Creating Document: GEO DEY RESIDENT Medical Necessity Reason Pt with a Central, PICC or Fol: No Subjective Review of Systems This is a 64-year-old male with past medical history of DM2, HTN, HLD, kidney stone came with the complain of left flank pain for 2 weeks which is progressively worsening day by day which is more severe for last 4 days, flank pain is dull and occasionally pinching, continuous, 8/10 intensity, radiates from groin to tip of the penis is during micturition, no aggravating factor, tried ibuprofen which helps a little. Patient also had similar symptoms before and passage of stone in urine 1 year back. Patient does not having particular dietary habit or any known factor that causes the stone. Denies any fever, hematuria, chest pain, headache, SOB, nausea, vomiting, any focal weakness. PAST MEDICAL HISTORY: DM2, HTN, HLD, kidney stone Surgical History: Denies all surgeries Family History: Family hx of DM Smoker: Non-Smoker Alcohol: Denies ETOH Use Drugs: Denies Drug Use Lives In: Home Allergy: No known allergies PCP: Dr. Wilkinson 10/23 interval events: The patient reports having upper and abdominal left flank pain. He denies any shortness of breath, chest pain fever or any other complaints at this time. Review of the systems: The patient was seen and examined at the bedside. Overnight events were reviewed. Complains of abdominal pain. Rest of the ROS is negative. Objective vital signs Vital Sign Date Time Temp Pulse Resp B/P (MAP) Pulse Ox O2 Delivery O2 Flow Rate FiO2 10/23/24 14:50 98.2 74 18 149/72 (97) 95 98.2 10/23/24 13:20 Mask 7.0 10/23/24 13:20 95 medications Current Medications Medications Dose Ordered Sig/Divine Route Start Time Stop Time Status Last Admin Dose Admin Nitroglycerin 0.4 mg Q5MINP PRN SL 10/22/24 21:30 Morphine Sulfate 2 mg Q30M PRN IV 10/22/24 21:30 Atorvastatin Calcium 10 mg HS PO 10/22/24 22:00 10/22/24 22:00 10 MG Diagnostic Test (Pha) 1 strip ACHS 10/22/24 22:00 10/23/24 16:24 1 STRIP Insulin Human Regular HS SC 10/22/24 22:00 10/22/24 23:20 6 UNITS Insulin Human Regular AC SC 10/23/24 07:00 10/23/24 07:57 3 UNITS Dextrose 50 ml UD PRN IV 10/22/24 21:30 Benazepril HCl 20 mg DAILY PO 10/23/24 10:00 Pantoprazole Sodium 40 mg DAILY@0600 PO 10/23/24 06:00 10/23/24 06:31 40 MG Tamsulosin HCl 0.4 mg QPM PO 10/23/24 18:00 Insulin Glargine 25 units QAM SC 10/23/24 07:00 10/23/24 08:05 25 UNITS Morphine Sulfate 1 mg Q6HP PRN IV 10/22/24 22:30 Ceftriaxone Sodium 50 ml @ 100 mls/hr DAILY@09 IV 10/23/24 09:00 10/23/24 08:59 100 MLS/HR Cholecalciferol 1,000 unit DAILY PO 10/23/24 10:00 Hydralazine HCl 10 mg Q6HP PRN IV 10/23/24 08:45 Sodium Chloride 1,000 ml @ 140 mls/hr Q7H9M IV 10/23/24 09:15 10/23/24 16:35 140 MLS/HR Examination Pt is lying on bed General Appearance: Alert, Oriented X3, Cooperative, Mild distress HEENT: Atraumatic, Mucous membranes moist/pink Respiratory: Clear to auscultation, Normal air movement, No added sounds Cardiovascular: Regular rate, Normal S1, Normal S2, No murmurs Abdominal/ : Active bowel sounds, Soft, no distention, no tenderness Extremities: No edema, Normal pulses, No tenderness/swelling Skin: No Significant rash, except past surgical scars Neuro: Normal speech, sensorimotor deficits none Psych/Mental Status: Mental status NL, Mood NL Nurse was there as metal cut off saw operator during examination laboratory and microbiology Laboratory Tests 10/23/24 04:11 10/22/24 18:56 Test 10/23/24 04:11 Range/Units Serum Glucose 176 #H 74-106 mg/dL Labs and/or images reviewed: Labs reviewed by me, Image(s) reviewed by me Problem List/Assessment/Plan Problem List/Assessment/Plan # Intractable left flank pain due to left renal calculus 4 mm # nephrolithiasis -Patient came with intractable left flank pain. -H/O Passage stone in urine 1 year back -On examination left costovertebral angle tenderness -UA-no hematuria or WBC -CT abdominal and pelvis without contrast: Nonobstructive stone within the left kidney without hydronephrosis or evidence of obstructive uropathy. Urinary bladder wall thickening which may reflect cystitis vs partial nondistention; consider correlation with urinarlysis. Minimal inflammation about the pancreatic head where acute pancreatitis is not entirely excluded. -NSS 100 cc/hours -Morphine 1 mg q.6 p.r.n. for pain -Tamsulosin 0.4 mg p.o. daily -Ceftriaxone 1 g IV daily -Urology consult s/p Extracorporeal Shockwave Lithotripsy # Abdominal pain likely Acute pancreatitis -CT abd-Minimal inflammation about the pancreatic head where acute pancreatitis is not entirely excluded. -Lipase 216 -NSS 1 L bolus stat. -continue NSS 125 cc/hour # Hepatomegaly -CT abdomen-Hepatomegaly to 17 cm. -outpatient follow up with fuel tank sealer and tester # Diverticulosis -CT abdomen-Colonic diverticulosis without acute diverticulitis. -Encourage high fiber food intake, outpatient follow-up. # Type 2 diabetes mellitus with hyperglycemia, HBA1C -9.1 -Hold home medication-metformin 1000 mg, glipizide 10 mg -Lantus 25 unit SC daily -Insulin sliding scale # YESICA due to vasomotor nephropathy -Serum creatinine 1.26, unknown baseline eGFR 64 -NSS IV 100 cc/hours # Essential hypertension -Continue home medication, benazepril 20 mg p.o. daily -Monitor blood pressures # Hyperlipidemia -Atorvastatin 10 mg p.o. daily-home medication -Lipid profile follow # Vitamin-D deficiency -Vitamin-D level 25.3 -Ordered by oral vitamin D3 # Obesity, BMI 31.6 -Lifestyle modification GI prophylaxis: DVT prophylaxis: Diet: Goals of care discussed with the patient for more than 27 minutes: Full code status Case discussed with DrJanet , patient and RN Plan discussed with: Patient Date of Service: Oct 23, 2024 Billing Provider: RONALDO MANN MD Common Visit Codes: [id number] INP/OBS CARE(HIGH) GEO DEY RESIDENT Oct 23, 2024 16:52 NEELIMA SILVA RESIDENT Oct 23, 2024 17:04 RONALDO MANN MD Oct 23, 2024 21:50
[2024-10-23] MEDS: TAMSULOSIN HYDROCHLORIDE 0.4 MG CAP PO SCH (17:24)
[2024-10-23] MEDS: MORPHINE SULFATE INJ 2 MG/ml SYRG IV PRN (22:41)
[2024-10-24 01:00] VITALS: BP 130/69; PULSE 97; RESP 18; TEMP 98.1; O2SAT 100
[2024-10-24 05:00] VITALS: BP 128/69; PULSE 88; RESP 18; TEMP 97.9; O2SAT 100
[2024-10-24 06:43] LABS: Hematocrit 38.2 % (41.0-53.0); Hemoglobin 12.9 g/dL (13.5-17.5); Mean Corpuscular Hemoglobin 27.3 pg (28.0-32.0); Mean Corpuscular Volume 81.1 fL (80.0-100.0); Nucleated Red Blood Cells % 0.0 %
[2024-10-24 06:51] LABS: Anion Gap 10 (5-15); Carbon Dioxide 24 mmol/L (20-31); Chloride 104 mmol/L (98-107); Potassium 4.9 mmol/L (3.5-5.1); Sodium 138 mmol/L (136-145)
[2024-10-24 06:52] LABS: Calcium 9.1 mg/dL (8.7-10.4)
[2024-10-24 06:57] LABS: BUN/Creatinine Ratio 19.2 (10.0-20.0)
[2024-10-24 07:02] LABS: Blood Urea Nitrogen 23 mg/dL (9-23); Glucose 321 mg/dL (74-106)
[2024-10-24] MEDS: ACCU-CHEK COMFORT CURVE STRIP VI ONE ×2 (07:48→07:49)
[2024-10-24] MEDS: KETOROLAC TROMETH 30 MG/ML 1ML VIAL IV ONE (07:48)
[2024-10-24] MEDS: METOCLOPRAMIDE HCL 5MG/ml INJ 2ml VIAL IV ONE (07:48)
[2024-10-24] MEDS: ONDANSETRON HCL 4 MG/2 ML VIAL IV ONE (07:49)
[2024-10-24 08:58] VITALS: BP 116/87; PULSE 104; RESP 20; TEMP 98.1; O2SAT 96
[2024-10-24 12:40] VITALS: BP 123/74; PULSE 87; RESP 22; TEMP 98.4; O2SAT 95
--- NOTE | 2024-10-24 13:07 | DVH ---
INDICATION: r/o cholecystitis TECHNIQUE: Multiple real-time sonographic images were obtained of the right upper quadrant. COMPARISON: None FINDINGS: The liver demonstrates heterogenous echotexture without focal mass lesions. The liver measu res 20 cm. There is no intrahepatic or extrahepatic ductal dilatation. The common duct measures 0. 5 mm. The gallbladder is without evidence of stone or sludge. The gallbladder wall measures 0.2mm and is within normal limits. The right kidney measures 11 cm. The right kidney is normal in contour, size, and shape. The echog enicity is normal. There is no hydronephrosis. 5 mm echogenic foci in the right lower lobe, which c ould represent a renal calculus The pancreas is not well visualized due to overlying bowel gas. IMPRESSION: No sonographic evidence of gallstones or acute cholecystitis. Hepatomegaly/hepatic steatosis
[2024-10-24] MEDS ORDERED: BENA10TA90 PO (14:42)
[2024-10-24] MEDS ORDERED: ATOR20TA50 PO (14:42)
[2024-10-24] MEDS ORDERED: TAMS-35 PO (14:42)
[2024-10-24] MEDS ORDERED: CALC-10 PO (14:42)
[2024-10-24] MEDS ORDERED: PANT40T PO (14:42)
[2024-10-24 15:19] LABS: Alanine Aminotransferase 32.0 U/L (7-40); Albumin 3.6 g/dL (3.2-4.8); Alkaline Phosphatase 70.0 U/L (46-116); Lipase 38.0 U/L (12-53); Total Protein 6.0 g/dL (5.7-8.2)
[2024-10-24 15:20] LABS: Bilirubin, Total 0.4 mg/dL (0.2-1.0)
[2024-10-24 15:38] LABS: Bilirubin, Direct 0.1 mg/dL (<0.3)
--- NOTE | 2024-10-24 15:52 | DVHDSRES ---
Discharge Summary Date of Admission Resident Creating Document: GEO DEY Oct 22, 2024 at 21:23 Date of Discharge: Oct 24, 2024 Admitting Diagnosis Abdominal pain Labs/Diagnostic Data: Laboratory Results Test 10/24/24 11:54 10/24/24 05:34 10/23/24 04:11 10/22/24 18:00 POC Glucose 318 mg/dl (70-106) White Blood Count 12.2 10^3/uL (4.4-10.8) Red Blood Count 4.71 10^6/uL (4.5-5.90) Hemoglobin 12.9 g/dL (13.5-17.5) Hematocrit 38.2 % (41.0-53.0) Mean Corpuscular Volume 81.1 fL (80.0-100.0) Mean Corpuscular Hemoglobin 27.3 pg (28.0-32.0) Mean Corpuscular Hemoglobin Concent 33.7 g/dL (32.0-36.0) Red Cell Distribution Width 13.3 % (11.8-14.3) Platelet Count 143 10^3/uL (140-450) Mean Platelet Volume 10.0 fL (6.9-10.8) Neutrophils (%) (Auto) 89.1 % (37.0-80.0) Lymphocytes (%) (Auto) 7.5 % (10.0-50.0) Monocytes (%) (Auto) 3.4 % (0.0-12.0) Eosinophils (%) (Auto) 0.0 % (0.0-7.0) Basophils (%) (Auto) 0.0 % (0.0-2.0) Neutrophils # (Auto) 10.8 10 ^3/uL (1.6-8.6) Lymphocytes # (Auto) 0.9 10 ^3/uL (0.4-5.4) Monocytes # (Auto) 0.4 10 ^3/uL (0-1.3) Eosinophils # (Auto) 0 10 ^3/uL (0-0.8) Basophils # (Auto) 0 10 ^3/uL (0-0.2) Nucleated Red Blood Cells 0.0 % Sodium Level 138 mmol/L (136-145) Potassium Level 4.9 mmol/L (3.5-5.1) Chloride Level 104 mmol/L (98-107) Carbon Dioxide Level 24 mmol/L (20-31) Anion Gap 10 (5-15) Blood Urea Nitrogen 23 mg/dL (9-23) Creatinine 1.20 mg/dL (0.700-1.30) Glomerular Filtration Rate Calc 68 mL/min (>90) BUN/Creatinine Ratio 19.2 (10.0-20.0) Serum Glucose 321 mg/dL (74-106) Calcium Level 9.1 mg/dL (8.7-10.4) Total Bilirubin 0.4 mg/dL (0.2-1.0) Direct Bilirubin 0.1 mg/dL (<0.3) Aspartate Amino Transferase (AST) 22 U/L (13-40) Alanine Aminotransferase (ALT) 32 U/L (7-40) Alkaline Phosphatase 70 U/L (46-116) Total Protein 6.0 g/dL (5.7-8.2) Albumin 3.6 g/dL (3.2-4.8) Lipase 38 U/L (12-53) Hemoglobin A1c 9.1 % A1C (<5.7) B-Type Natriuretic Peptide 12.29 pg/mL (0-100) Triglycerides Level 224 mg/dL (< 150) Cholesterol Level 173 mg/dL (< 200) LDL Cholesterol 110 mg/dL (< 100) HDL Cholesterol 45 mg/dL (40-59) Vitamin D 25-Hydroxy 25.3 ng/mL (30.0-100) Thyroid Stimulating Hormone (TSH) 3.26 uIU/mL (0.55-4.78) Urine Color Yellow (Yellow) Urine Clarity Clear (Clear) Urine pH 5.5 (5.0-9.0) Urine Specific Grant 1.026 (1.001-1.035) Urine Protein Trace (Negative) Urine Ketones Negative (Negative) Urine Blood Negative /uL (Negative) Urine Nitrite Negative (Negative) Urine Bilirubin Negative (Negative) Urine Urobilinogen Normal mg/dL (Negative) Urine Leukocyte Esterase Negative /uL (Negative) Urine RBC 1 /hpf (0 - 3) Urine Microscopic WBC < 1 /HPF (0-3) Urine Squamous Epithelial Cells Few /hpf (<5) Urine Bacteria None seen /hpf (None Seen) Urine Mucus Few (None Seen) Urine Glucose 4+ mg/dL (Normal) Other Laboratory Tests 10/24/24 05:34 Brief Hx & Hospital Course: This is a 64-year-old male with past medical history of DM2, HTN, HLD, kidney stone came with the complain of left flank pain for 2 weeks which is progressively worsening day by day which is more severe for last 4 days, flank pain is dull and occasionally pinching, continuous, 8/10 intensity, radiates from groin to tip of the penis is during micturition, no aggravating factor, tried ibuprofen which helps a little. Patient also had similar symptoms before and passage of stone in urine 1 year back. Patient does not having particular dietary habit or any known factor that causes the stone. Denies any fever, hematuria, chest pain, headache, SOB, nausea, vomiting, any focal weakness. PAST MEDICAL HISTORY: DM2, HTN, HLD, kidney stone Surgical History: Denies all surgeries Family History: Family hx of DM Smoker: Non-Smoker Alcohol: Denies ETOH Use Drugs: Denies Drug Use Lives In: Home Allergy: No known allergies PCP: Dr. Wilkinson Imaging revealed a nonobstructive stone in the left kidney without hydronephrosis or evidence of obstructive uropathy. He had a left costovertebral angle tenderness in urinalysis showed no hematuria or WBCs. The patient received IV fluids, pain management with morphine and was started on tamsulosin and ceftriaxone. Urology was consulted and he underwent extracorporeal shockwave lithotripsy. The procedure was successfully completed without any complications. Further imaging revealed mild inflammation around the pancreatic head, raising concern for early acute pancreatitis with lipase of 216. Was managed conservatively with IV fluids. He was given morphine and ondansetron for symptom control. Hepatomegaly was noted on home icing and outpatient hepatology follow-up was recommended. CT abdomen also revealed colonic diverticulosis without signs of acute diverticulitis. The patient was encouraged to maintain a high-fiber diet and follow up as an outpatient. During hospitalization he was also noted to have hyperglycemia with a day HbA1c of 9.1. Consistent with uncontrolled type 2 diabetes mellitus. His home medications of metformin and glipizide were held and he was managed with Lantus 25 units subcutaneously daily and insulin sliding scale. Additionally mild YESICA was noted serum creatinine of 1.26 mg/dL and a EGFR of 64, likely secondary to vasomotor nephropathy . And was treated with IV fluids. Chronic conditions addressed during the admission include hypertension (continued on benazepril 20 mg daily), hyperlipidemia(continued atorvastatin 10 mg daily), obesity (advised on lifestyle modification) and vitamin-D deficiency(given oral vitamin D3). At the time of discharge, the patient was hemodynamically stable, tolerating oral intake and pain was well controlled. He was discharged in stable condition with instructions for close outpatient follow-up with primary care, urology and hepatology. The discharge plan was discussed with the patient and per patient verbalized understanding. Condition at Discharge: Stable Final Diagnosis/Problems List Acute pancreatitis Nephrolithiasis Status post ESWL due to left renal calculus 4 mm Hepatomegaly Diverticulosis Type 2 diabetes mellitus uncontrolled YESICA due to vasomotor nephropathy Hypertension Hyperlipidemia Vitamin-D deficiency the Obesity Discharge Disposition: Home Discharge Instruct/Medications Diet: Consistent carbohydrate, Cardiac 2g Na,low cholest Activity: No Restrictions, As Tolerated Follow Up/Referral: pcp, [facility] Medications: per emr Scheduled Atorvastatin Calcium (Atorvastatin Calcium), 20 MG PO HS Benazepril Hcl (Benazepril Hcl), 20 MG PO DAILY Cholecalciferol (Vitamin D-[address]), 1,000 UNIT PO DAILY Pantoprazole Sodium Sesquihydr (Pantoprazole Sodium), 40 MG PO DAILY@0600 Tamsulosin Hcl (Flomax), 0.4 MG PO QPM Discharge Statement: "Patient was advised to return to the ER or call 911 if any headaches, dizziness, shortness of breath, chest pain, abdominal pain, bleeding, fevers, or worsening of medical condition. Patient was counseled about treatment plan, medications, possible side effects, patientverbalized understanding. All questions were answered to the best of my ability. This discharge took greater then 30 minutes in planning, reviewing documentation, counseling the patient, and discussing with other team members." ASSESSMENT ASSESSMENT Assessment Acute pancreatitis Date of Service: Oct 24, 2024 Billing Provider: RONALDO MANN MD Common Visit Codes: 57946-ITS/OBS DISCH DAY >30min GEO DEY Oct 24, 2024 15:52 RONALDO MANN MD Oct 26, 2024 23:40
== END 2024-10-24 16:25 | disposition home or self-care (01) | DRG 438 ==
LOC: ER 17:40 → OVERFLOW 21:23 → EAST 10-23 14:45
PROVIDERS: ADMIT Internal Medicine; ATTEND Internal Medicine
PROC: 0TF4XZZ Fragmentation in Left Kidney Pelvis, External Approach (ICD-10-PCS; principal; 2024-10-23 12:29)
DX: K85.90 Acute pancreatitis without necrosis or infection, unspecified (principal); N17.0 Acute kidney failure with tubular necrosis; N13.2 Hydronephrosis with renal and ureteral calculous obstruction; E11.65 Type 2 diabetes mellitus with hyperglycemia; E55.9 Vitamin D deficiency, unspecified; E66.9 Obesity, unspecified; R16.0 Hepatomegaly, not elsewhere classified; E78.5 Hyperlipidemia, unspecified; I10 Essential (primary) hypertension; K57.30 Diverticulosis of large intestine without perforation or abscess without bleeding; Z68.31 Body mass index [BMI] 31.0-31.9, adult; Z83.3 Family history of diabetes mellitus; Z87.442 Personal history of urinary calculi; Z79.84 Long term (current) use of oral hypoglycemic drugs
CPT/HCPCS: 36415; 71045; 74176; 76705; 80048; 80053; 80061; 80076; 81001; 82306; 82962; 83036; 83690; 83880; 84443; 85025; 87086; 96374; 96375; A4344; G0378; J1100; J1815; J1885; J2003; J2250; J2405; J2704